=== PATIENT | female | born 1950 | race Caucasian/White ===

== ENCOUNTER → 2016-10-20 | Outpatient (CLI) | payer MEDICARE, OTHER ==
[~2016-10-20] MED LIST: 3N1 COMMODE MC; ASPI-781 PO; ATOR10TA65 PO; CPM MC; FLUO20CA22 PO; LEVO125T75 PO; LOSA50TA6 PO; OXYC-481 PO; SITA50TA2 PO; TRAM50TA2 PO; WALK1EAC23 MC
--- NOTE | 2016-10-20 14:54 | RADRPT ---
PROCEDURE: Right knee radiographs. CLINICAL INDICATION: Right knee pain. Postop. TECHNIQUE: Three views. Weight bearing. Frontal, lateral, and patellar view. COMPARISON: 04/26/2016. FINDINGS: There is no fracture or dislocation. The soft tissues are normal. 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 There is no lytic or blastic lesion. There is a joint effusion, unchanged. IMPRESSION: 1. Joint effusion, unchanged. 2. Postoperative appearance of the right knee. RPTAT: QQ .Gonzalo Mackey MD, MD Date Time Electronically viewed and signed by .Gonzalo Mackey MD, MD on 10/20/2016 14:53 .R/
== END | disposition home or self-care (01) ==
LOC: HKI 08:39
PROVIDERS: ATTEND Orthopaedic Surgery
DX: Z47.1 Aftercare following joint replacement surgery (principal); Z96.651 Presence of right artificial knee joint
CPT/HCPCS: 73562; G0463